=== PATIENT | male | born 1995 | race Caucasian/White ===

== ENCOUNTER → 2024-06-17 11:57 | Outpatient (CLI) | payer OTHER, SELFPAY ==
--- NOTE | 2024-06-17 | DI.MRI.S_ITS ---
PROCEDURE: MR CERVICAL SPINE WO CON INDICATIONS: C4-C7 FUSION NOW W/NUMBNESS IN TIPS OF ALL FINGERS TECHNIQUE: Noncontrast sagittal T1 spin echo and T2 fast spin echo, sagittal STIR, foraminal oblique sagittal T2 fast spin echo, and axial gradient echo or T2 fast spin echo through the cervical spine. COMPARISON: None. FINDINGS: Image quality: Excellent. Alignment and Curvature: Straightening of the normal cervical lordosis. Bone Marrow: C4 through C7 ACDF hardware. Marrow demonstrates normal overall signal. Spinal Cord: Possible subtle T2 hyperintense signal in the cord at C3-C4. No cerebellar tonsillar herniation. Paraspinous Soft Tissues: No paravertebral masses. Prevertebral soft tissues are normal in thickness. C2-C3: Disc desiccation and minimal posterior disc osteophyte complex. Mild central canal stenosis. No neural foraminal stenosis. C3-C4: Disc desiccation and moderate disc height loss. Posterior disc osteophyte complex. Facet and uncovertebral arthropathy. Severe central canal stenosis. Moderate to severe bilateral neural foraminal stenosis. C4-C5: ACDF. No significant central canal or neural foraminal stenosis. C5-C6: ACDF. No significant central canal or neural foraminal stenosis. C6-C7: ACDF. No central canal stenosis. No right neural foraminal stenosis. Mild left neural foraminal stenosis. C7-T1: No central canal stenosis. Facet and uncovertebral arthropathy. Mild bilateral neural foraminal stenosis. IMPRESSION: 1. Multilevel degenerative changes of the cervical spine status post C4 through C7 ACDF. 2. There is severe central canal stenosis at C3-C4 with possible mild T2 hyperintense signal in the cord, possibly representing myelomalacia. 3. Moderate to severe bilateral neural foraminal stenosis at C3-C4. Dictated by: Tommy Valentine M.D. on 06/17/2024 at 16:14 Approved by: Tommy Valentine M.D. on 06/17/2024 at 16:20
== END ==
DX: M47.812 Spondylosis without myelopathy or radiculopathy, cervical region (principal); M48.02 Spinal stenosis, cervical region; R20.0 Anesthesia of skin; Z98.1 Arthrodesis status
CPT/HCPCS: 72141

== ENCOUNTER → 2024-07-31 16:56 | Outpatient (CLI) | payer OTHER, SELFPAY ==
--- NOTE | 2024-07-31 17:00 | DI.RAD.S_ITS ---
PROCEDURE: XR CERVICAL SPINE 2V OR 3V INDICATIONS: Cervicalgia TECHNIQUE: Three views of the cervical spine were acquired COMPARISON: None. FINDINGS: Bones: Anterior C4-5, C5-6 and C6-7 fusion provided by anterior plate and interbody spacers. It appears to be solid and anatomically aligned. Soft tissues: No prevertebral soft tissue swelling. IMPRESSION: Anterior C4-5, C5-6 and C6-7 fusion solid and anatomically aligned. No abnormality Dictated by: James Scruggs M.D. on 08/01/2024 at 17:35 Approved by: James Scruggs M.D. on 08/01/2024 at 17:36
== END ==
LOC: RAD 16:59
PROVIDERS: Referring Provider Personal Emergency Response Attendant; Visit Provider Personal Emergency Response Attendant
DX: M54.2 Cervicalgia (principal); Z98.1 Arthrodesis status
CPT/HCPCS: 72040

== ENCOUNTER → 2024-10-30 13:06 | Outpatient (CLI) | payer OTHER, SELFPAY ==
--- NOTE | 2024-10-30 | DI.RAD.S_ITS ---
PROCEDURE: XR CERVICAL SPINE 1V INDICATIONS: PSF TECHNIQUE: Single lateral view of the cervical spine acquired. COMPARISON: [facility], CR, XR CERVICAL SPINE 2V OR 3V, 07/31/2024, 17:02. FINDINGS: Cervical spine curvature and alignment: Normal. Bones: There are no osseous abnormalities. Disc spaces: Anterior discectomy and fusion changes C3-4, C4-5, C5-6 and C6-7 provided by anterior plates , screws and intervertebral spacers again noted. No postsurgical complication. Mild C2-3 and C7-T1 degenerative disc disease appreciated. Soft tissues: No soft tissue swelling, calcification or mass. IMPRESSION: Anterior C3 through C7 fusion in anatomic alignment with no postsurgical complication. No change Dictated by: James Scruggs M.D. on 10/31/2024 at 6:31 Approved by: James Scruggs M.D. on 10/31/2024 at 6:33
== END ==
LOC: RAD 13:12
PROVIDERS: Referring Provider Neurological Surgery; Visit Provider Neurological Surgery
DX: M48.02 Spinal stenosis, cervical region (principal); M50.31 Other cervical disc degeneration, high cervical region; Z98.1 Arthrodesis status
CPT/HCPCS: 72020